=== PATIENT | male | born 1960 | race Caucasian/White ===

== ENCOUNTER → 2023-12-03 | Outpatient (CLI) | payer MEDICARE ==
--- NOTE | 2023-12-03 17:28 | CTL ---
EXAMINATION TYPE: CT Low Dose Lung DATE OF EXAM ORDERED: 12/03/2023 HISTORY: 63-year-old male current smoker with 50 pack-year history. F17.210 NICOTINE DEPENDENCE, CIGA RETTES, UNCOMPLICATED Z12.2. Lung cancer screening CT DLP: 114.[address] CTDI: 3.0 mGy Automated exposure control for dose reduction was used. SCREENING VISIT: Baseline COMPARISON: None TECHNIQUE: Low dose computed tomography scan was performed through the chest at 1 mm thick sections a nd reconstructed images in multiple planes at 1 mm and [address] DIAGNOSTIC QUALITY: Satisfactory FINDINGS: The heart is normal size without pericardial effusion. Mitral annulus calcifications noted. Aorta normal caliber with conventional branching anatomy and minimal scattered atherosclerotic calcif ications. No thoracic adenopathy by criteria. Trace left-sided gynecomastia. Mild diffuse bronchial wall thickening. Patchy opacity in the inferior lingula. 4 mm right middle lobe pulmonary nodule, axial 179. 4 mm lateral right basilar pulmonary nodule, axial image 216. 5 mm right mid lung pulmonary nodule, axial image 160. 4 mm pulmonary nodules right upper lobe, axial images 31 and 136. 3 mm subpleural pulmonary nodule lateral right upper lobe, axial 117. 5 mm subpleural pulmonary nodule lateral left lower lobe, axial image 216. A few additional 4 mm and smaller nodules are noted. Background mild emphysematous change. Visualized upper abdomen shows partially visualized left renal cortical cysts. Bones: Mild degenerative disc disease throughout the lower thoracic spine. IMPRESSION: 1. LungRADS 2, benign. A few scattered pulmonary nodules measuring up to 5 mm on baseline screening. 2. COPD with mild emphysema. Recommend smoking cessation. 3. Patchy atelectasis or scar versus infiltrate/developing pneumonia at the inferior lingula. Correla te with symptoms. CT LUNG RAD AND CT CHEST RECOMMENDATION: Lung-Rad 2 Benign Appearance or Behavior: Continue annual sc reening with LDCT in 12 months. S Modifier (other clinically significant findings): None
== END | disposition home or self-care (01) ==
LOC: RADCTMAIN 09:32
PROVIDERS: ATTEND Family Medicine
DX: Z12.2 Encounter for screening for malignant neoplasm of respiratory organs (principal); J43.9 Emphysema, unspecified; J44.9 Chronic obstructive pulmonary disease, unspecified; R91.8 Other nonspecific abnormal finding of lung field; F17.210 Nicotine dependence, cigarettes, uncomplicated
CPT/HCPCS: 71271

== ENCOUNTER → 2024-12-07 | Outpatient (CLI) | payer MEDICARE ==
[2024-12-07 19:55] LABS: Magnesium 1.7 mg/dL (1.5-2.4)
[2024-12-07 19:56] LABS: ALT 21 U/L (10-49); AST 19 U/L (14-35); Albumin/Globulin Ratio 1.38 Ratio (1.60-3.17); Alkaline Phosphatase 76 U/L (41-126); BUN/Creat Ratio 12.92 Ratio (12.00-20.00); Blood Urea Nitrogen 15.5 mg/dL (9.0-27.0); Calcium 9.3 mg/dL (8.7-10.3); Carbon Dioxide 24.5 mmol/L (21.6-31.8); Chloride 101 mmol/L (96-109); Globulin 2.9 g/dL (1.6-3.3); Glucose 107 mg/dL (70-110); Potassium 3.9 mmol/L (3.5-5.5); Sodium 137 mmol/L (135-145); T4, Free (Free Thyroxine) 1.21 ng/dL (0.80-1.80); Total Bilirubin 0.4 mg/dL (0.3-1.2); Total Protein 6.9 g/dL (6.2-8.2)
[2024-12-07 20:16] LABS: Basophils # (A) 0.05 X 10*3/uL (0.00-0.10); Eosinophils # (A) 0.13 X 10*3/uL (0.04-0.35); Eosinophils % (A) 2.6 %; HCT 47.4 % (39.6-50.0); HGB 16.3 g/dL (13.0-17.0); Lymphocytes # (A) 1.72 X 10*3/uL (0.90-5.00); MCHC 34.4 g/dL (32.0-37.0); Mean Platelet Volume 10.2 FL (9.5-12.2); Monocytes # (A) 0.74 X 10*3/uL (0.20-1.00); NRBC Per 100 WBC 0 X 10*3/uL (0.00-0.01); Neutrophils # (A) 2.26 X 10*3/uL (1.80-7.70); Platelet Count 224 X 10*3/uL (140-440); RBC 4.94 X 10*6/uL (4.40-5.60); RDW 11.9 % (11.5-14.5); WBC 4.92 X 10*3/uL (4.50-10.00)
== END | disposition home or self-care (01) ==
LOC: LABWHC1 12:42
PROVIDERS: ATTEND Podiatrist Foot & Ankle Surgery
DX: G62.9 Polyneuropathy, unspecified (principal); G60.9 Hereditary and idiopathic neuropathy, unspecified; F17.210 Nicotine dependence, cigarettes, uncomplicated
CPT/HCPCS: 36415; 80053; 82306; 82607; 82746; 83735; 84439; 84443; 84481; 84550; 85025

== ENCOUNTER → 2025-01-19 | Outpatient (CLI) | payer MEDICARE ==
[2025-01-19 15:56] LABS: Anion Gap 9.90 mmol/L (4.00-12.00); BUN/Creat Ratio 15.50 Ratio (12.00-20.00); Blood Urea Nitrogen 15.5 mg/dL (9.0-27.0); Calcium 9.3 mg/dL (8.7-10.3); Carbon Dioxide 25.1 mmol/L (21.6-31.8); Chloride 102 mmol/L (96-109); Glucose 96 mg/dL (70-110); Potassium 4.3 mmol/L (3.5-5.5); Sodium 137 mmol/L (135-145); Uric Acid 8.8 mg/dL (3.7-8.7)
== END | disposition home or self-care (01) ==
LOC: LABWHC1 12:45
PROVIDERS: ATTEND Nurse Practitioner Gerontology
DX: M10.9 Gout, unspecified (principal)
CPT/HCPCS: 36415; 80048; 84550